=== PATIENT | female | born 1985 | race African-American/Black ===

== ENCOUNTER 2020-08-04 11:57 | Emergency (ER) | payer SELFPAY ==
[~2020-08-04] VITALS: Ht 165.1 cm; Wt 152.0 kg
[2020-08-04 11:57] VITALS: BP 156/89
--- NOTE | 2020-08-04 12:36 | PHYS DOC ---
Past History Past Medical History: Other Additional Past Medical Histor: sickle cell crisis (VINCENT ANGUIANO APRN) Past Surgical History: Appendectomy, Cholecystectomy, Hysterectomy, Tonsillectomy (VINCENT ANGUIANO APRN) Alcohol Use: None (VINCENT ANGUIANO APRN) General Adult EDM: Chief Complaint: GENERALIZED BODY ACHES HPI: HPI: Patient is a 34-year-old female who presents with sickle cell crisis. Patient states that she has arm, leg, back pain. Patient states that symptoms started yesterday. Patient denies chest pain, shortness of breath or fever. Denies abdominal pain. Patient states that she has not had a flareup since November. 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 Patient denies any other health history. (VINCENT ANGUIANO APRN) Review of Systems: Review of Systems: Constitutional: Denies fever or chills Eyes: Denies change in visual acuity HENT: Denies nasal congestion or sore throat Respiratory: Denies cough or shortness of breath Cardiovascular: Denies chest pain or edema GI: Denies abdominal pain, nausea, vomiting, bloody stools or diarrhea : Denies dysuria Musculoskeletal: Reports back pain, arm pain, leg pain Integument: Denies rash Neurologic: Denies headache, focal weakness or sensory changes Endocrine: Denies polyuria or polydipsia Lymphatic: Denies swollen glands Psychiatric: Denies depression or anxiety (VINCENT ANGUIANO APRN) Allergies: Allergies: Allergies Uncoded Allergies Type Severity Reaction Last Updated Verified NSAIDS Allergy Unknown 08/04/20 (VINCENT ANGUIANO APRN) Physical Exam: PE: Constitutional: Well developed, well nourished, no acute distress, non-toxic appearance. [] HENT: Normocephalic, atraumatic, bilateral external ears normal, oropharynx moist, no oral exudates, nose normal. [] Eyes: PERRLA, EOMI, conjunctiva normal, no discharge. [] Neck: Normal range of motion, no tenderness, supple, no stridor. [] Cardiovascular:Heart rate regular rhythm, no murmur [] Lungs & Thorax: Bilateral breath sounds clear to auscultation [] Abdomen: Bowel sounds normal, soft, no tenderness, no masses, no pulsatile masses. [] Skin: Warm, dry, no erythema, no rash. [] Back: Lower back tenderness, no CVA tenderness. [] Extremities: Arm, lower leg tenderness, no cyanosis, no clubbing, ROM intact, no edema. [] Neurologic: Alert and oriented X 3, normal motor function, normal sensory function, no focal deficits noted. [] Psychologic: Affect normal, judgement normal, mood normal. [] (VINCENT ANGUIANO APRN) Current Patient Data: Vital Signs: Vital Signs Date Time Temp Pulse Resp B/P (MAP) Pulse Ox O2 Delivery O2 Flow Rate FiO2 08/04/20 11:57 97.9 90 16 156/89 (111) 100 Room Air (VINCENT ANGUIANO APRN) EKG: EKG: [] Sinus rhythm. Heart rate 85 bpm. (VINCENT ANGUIANO APRN) Radiology/Procedures: Radiology/Procedures: []Site ID: [id number] EXAMINATION: XR CHEST 1V. HISTORY: 34 years Female Reason: LEG, ARM, BACK PAIN / Spl. Instructions: / History: . . COMPARISON: None. Findings: Overlying cast soft tissues of the lung bases increased opacity with no definite focal infiltrate. The heart size is normal. There is no effusion or pneumothorax. The mediastinum and wilber appear unremarkable. Impression: No definite abnormality. Electronically signed by: Gene Anderson MD (08/04/2020 12:55 PM) [id number] (VINCENT ANGUIANO APRN) Heart Score: C/O Chest Pain: No Risk Factors: Risk Factors: DM, Current or recent (<one month) smoker, HTN, HLP, family history of CAD, obesity. Risk Scores: Score 0 - 3: 2.5% MACE over next 6 weeks - Discharge Home Score 4 - 6: 20.3% MACE over next 6 weeks - Admit for Clinical Observation Score 7 - 10: 72.7% MACE over next 6 weeks - Early Invasive Strategies (VINCENT ANGUIANO APRN) Course & Med Decision Making: Course & Med Decision Making Pertinent Labs and Imaging studies reviewed. (See chart for details) [] Patient presents to emergency room with arm and leg, back pain due to sickle cell crisis. Patient states that she has not had a flareup since November. Patient reports she has been hospitalized multiple times. Patient is denying shortness of breath, fevers, chest pain, abdominal pain. My hemoglobin is normally 9.8 at baseline". "They do not normally transfusion unless my hemoglobin at 7.5 or lower". "They normally give me 2 mg of Dilaudid my pain". Chest x-ray is negative. EKG shows sinus rhythm, heart rate 85 bpm. Hemoglobin is 9.5. All other labs unremarkable. When I reassessed patient she was still complaining of pain. Patient given second dose of Dilaudid and Benadryl. Patient states that she has an appointment with her PCP next week. Patient given prescription for Percocet for pain control she can follow back up with PCP. Patient is hemodynamically stable and okay with discharge plan. (VINCENT ANGUIANO APRN) Dragon Disclaimer: Grady Disclaimer: This electronic medical record was generated, in whole or in part, using a voice recognition dictation system. (VINCENT ANGUIANO APRN) Departure Departure: Impression: Primary Impression: Sickle cell pain crisis Disposition: HOME / SELF CARE / HOMELESS Condition: STABLE Referrals: PCP,NO (PCP) Patient Instructions: Sickle Cell Pain Crisis, [id number] Additional Instructions: You were seen in the emergency room for pain control from sickle cell. I am sending you home with a prescription to help with pain control till you are able to follow back up with your PCP. Please return emergency room with worsening symptoms or concerns peer EMERGENCY DEPARTMENT GENERAL DISCHARGE INSTRUCTIONS Thank you for coming to [facility] (ED) today and trusting us with you care. We trust that you had a positivie experience in our Emergency Department. If you wish to speak to the department management, you may call the director at [phone]. YOUR FOLLOW UP INSTRUCTIONS ARE FOLLOWS: 1. Do you have a private Doctor? If you do not have a private doctor, please ask for a resource list of physicians or clinics that may be able to assist you with follow up care. 2. The Emergency Physician has interpreted your x-rays. The X-Ray specialist will also review them. If there is a change in the findings, you will be notified in 48 hours when at all possible. 3. A lab test or culture has been done, your results will be reviewed and you will be notified if you need a change in treatment. ADDITIONAL INSTRUCTIONS AND INFORMATION: 1. Your care today has been supervised by a physician who is specially trained in emergency care. Many problems require more than one evaluation for a complete diagnosis and treatment. We recommend that you schedule your follow up appointment as recommended to ensure complete treatment of you illness or injury. If you are unable to obtain follow up care and continue to have a problem, or if your condition worsens, we recommend that you return to the ED. 2. We are not able to safely determine your condition over the phone nor are we able to give sound medical advice over the phone. For these safety reasons, if you call for medical advice we will ask you to come to the ED for further evaluation. 3. If you have any questions regarding these discharge instructions please call the ED at [phone]. SAFETY INFORMATION: In the interest of safety, wellness, and injury prevention; we encourage you to wear your sealbelt, if you smoke; quite smoking, and we encourage family to use a protective helmet for bicycling and other sporting events that present an increased risk for head injury. IF YOUR SYMPTOMS WORSEN OR NEW SYMPTOMS DEVELOP, OR YOU HAVE CONCERNS ABOUT YOUR CONDITION; OR IF YOUR CONDITION WORSENS WHILE YOU ARE WAITING FOR YOUR FOLLOW UP APPOINTMENT; EITHER CONTACT YOUR PRIMARY CARE DOCTOR, THE PHYSICIAN WHOSE NAME AND NUMBER YOU WERE GIVEN, OR RETURN TO THE ED IMMEDIATELY. Scripts Oxycodone Hcl/Acetaminophen (PERCOCET 10-325 MG TABLET ) 1 Each Tablet 1 TAB PO PRN Q6HRS PRN for PAIN, #10 TAB Prov: VINCENT ANGUIANO APRN 08/04/20 Attending Signature Attending Signature I have reviewed the PA/OFFICE AIDE's note and plan of care. I was available for consultation as needed during the patient's visit in the emergency department. I agree with the clinical impression, plan, and disposition. (ZEYNEP QUISPE DO) VINCENT ANGUIANO APRN August 04, 2020 12:36 ZEYNEP QUISPE DO August 04, 2020 15:36
--- NOTE | 2020-08-04 12:46 | EKG ---
[address] [address] Test Date: 2020-08-04 Test Time: 12:39:10 Pat Name: EDUARDO ARAUZ Department: Room: Gender: F [employer]: BARBER : 1985 Requested By: VINCENT ANGUIANO Order Number: [id number] Reading MD: Measurements Intervals [place] Rate: 85 P: 42 OR: 156 QRS: -14 QRSD: 84 T: 27 QT: 350 QTc: 417 Interpretive Statements SINUS RHYTHM LEFTWARD AXIS R-S TRANSITION ZONE IN V LEADS DISPLACED TO THE LEFT OTHERWISE NORMAL ECG RI6.02 No previous ECG available for comparison
[2020-08-04] MEDS: IV NORMAL SALINE 1,000ML 1,000 ML IV ONE (12:51)
[2020-08-04] MEDS: HYDROmorphone PF 2 MG/ML VIAL IVP ONE ×2 (12:51→13:46)
[2020-08-04] MEDS: diphenhydrAMINE 50 MG/ML VIAL IVP ONE ×2 (12:51→13:46)
--- NOTE | 2020-08-04 12:58 | RAD ---
Site ID: [id number] EXAMINATION: XR CHEST 1V. HISTORY: 34 years Female Reason: LEG, ARM, BACK PAIN / Spl. Instructions: / History: . . COMPARISON: None. Findings: Overlying cast soft tissues of the lung bases increased opacity with no definite focal infi ltrate. The heart size is normal. There is no effusion or pneumothorax. The mediastinum and wilber appear unremarkable. Impression: No definite abnormality. Electronically signed by: Gene Anderson MD (08/04/2020 12:55 PM) [id number]
[2020-08-04 13:07] LABS: BASO % 1 % (0-3); EOS # 0.1 x10^3/uL (0.0-0.7); EOS % 1 % (0-3); HEMATOCRIT 30.6 % (36.0-47.0); HEMOGLOBIN 9.5 g/dL (12.0-15.5); LYMPH # 1.4 x10^3/uL (1.0-4.8); LYMPH % 26 % (24-48); MEAN CORPUSCULAR HEMOGLOBIN 21 pg (25-35); MEAN CORPUSCULAR HGB CONC 31 g/dL (31-37); MEAN CORPUSCULAR VOLUME 67 fL (79-100); MONO # 0.3 x10^3/uL (0.0-1.1); MONO % 5 % (0-9); NEUT # 3.5 x10^3uL (1.8-7.7); NEUT % 67 % (31-73); PLATELET COUNT 366 x10^3/uL (140-400); RED BLOOD COUNT 4.58 x10^6/uL (3.50-5.40); RED CELL DISTRIBUTION WIDTH 20.3 % (11.5-14.5); WHITE BLOOD COUNT 5.3 x10^3/uL (4.0-11.0)
[2020-08-04 13:12] LABS: CALCIUM 8.1 mg/dL (8.5-10.1); CREATININE 0.7 mg/dL (0.6-1.0); GFR 115.9; POTASSIUM 3.6 mmol/L (3.5-5.1)
[2020-08-04 13:18] LABS: ALBUMIN 3.3 g/dL (3.4-5.0); ALBUMIN/GLOBULIN RATIO 0.8 (1.0-1.7); TOTAL BILIRUBIN 0.2 mg/dL (0.2-1.0); TOTAL PROTEIN 7.3 g/dL (6.4-8.2)
[2020-08-04] MEDS ORDERED: OXYC1TAB22 PO (14:01)
[2020-08-04 14:30] LABS: ANISOCYTOSIS MOD; HYPOCHROMIA MOD; MICROCYTOSIS MOD
[2020-08-04 14:31] LABS: PLT ESTIMATE ADEQUATE (ADEQUATE)
== END 2020-08-04 14:05 | disposition home or self-care (01) ==
LOC: ER 11:57
DX: D57.00 Hb-SS disease with crisis, unspecified (principal); Z90.49 Acquired absence of other specified parts of digestive tract; Z90.710 Acquired absence of both cervix and uterus
CPT/HCPCS: 36415; 71045; 80053; 82803; 85025; 85045; 93005; 96361; 96374; 96375; 96376; 99285; J1170; J1200; J7030